=== PATIENT | male | born 1970 | race Caucasian/White ===

== ENCOUNTER 2018-09-17 03:46 | Emergency (ER) | payer OTHER ==
[~2018-09-17] VITALS: Ht 172.7 cm; Wt 111.1 kg
[~2018-09-17 03:46] MED LIST: NO HOME MEDS
[2018-09-17] MEDS ORDERED: TETanus/Pertussis (Acell)/Diphther VAC/PF (Tdap-Adult) 0.5ml syringe IM ONE (04:20)
[2018-09-17] MEDS ORDERED: LIDOcaine 1.5% w/epinephrine 1:200,000 5ml ampul IJ ONE (04:30)
[2018-09-17] MEDS ORDERED: LIDOcaine 1% w/epiNEPHrine 1:200,000 30ml vial IJ ONE (04:35)
[2018-09-17 04:49] LABS: BASOPHILS % (AUTO) 0.4 % (0-1); EOSINOPHILS % (AUTO) 0.3 % (0-6); HEMATOCRIT 42.1 % (42.0-52.0); HEMOGLOBIN 14.3 g/dl (14.0-17.9); LYMPHOCYTES % (AUTO) 11.2 % (21-51); MEAN CORPUSCULAR VOLUME 88.2 FL (78-98); MEAN PLATELET VOLUME 8.9 FL (7.4-10.4); MONOCYTES # (AUTO) 0.5 X10'3 (0-0.9); MONOCYTES % (AUTO) 5.2 % (2-12); NEUTROPHILS # (AUTO) 7.4 X10'3 (1.8-7.7); NEUTROPHILS % (AUTO) 82.9 % (42-75); PLATELET COUNT 243 X10'3 (140-440); RED BLOOD COUNT 4.77 X10'6 (4.70-6.10); RED CELL DISTRIBUTION WIDTH 13.5 % (11.5-14.5); WHITE BLOOD COUNT 8.9 X10'3 (4.5-11.0)
--- NOTE | 2018-09-17 05:18 | NUR ---
Dr. Mancilla talking with Pt about ct results. pt to be discharged. lidocaine placed in wound and wound irrigated. awaiting ethel.
--- NOTE | 2018-09-17 05:38 | NUR ---
ethel in place, pt is dc ready
[2018-09-17 05:44] VITALS: BP 129/83
== END 2018-09-17 05:50 | disposition home or self-care (01) ==
LOC: ER 03:47
DX: S01.01XA Laceration without foreign body of scalp, initial encounter (principal); F10.929 Alcohol use, unspecified with intoxication, unspecified; Z98.890 Other specified postprocedural states; Y90.9 Presence of alcohol in blood, level not specified; W10.8XXA Fall (on) (from) other stairs and steps, initial encounter; Y93.89 Activity, other specified; Y92.89 Other specified places as the place of occurrence of the external cause; Y99.8 Other external cause status
CPT/HCPCS: 12002; 36415; 70450; 85025; 90715; 99284; J3490